=== PATIENT | male | born 1950 ===

== ENCOUNTER → 2022-06-22 | Outpatient (RCR) | payer MEDICARE | LOC: PT 10:42 | PROVIDERS: ATTEND Neurological Surgery | DX: M51.17 Intervertebral disc disorders with radiculopathy, lumbosacral region (principal) ==

== ENCOUNTER 2022-07-20 10:54 | Outpatient (RCR) | payer MEDICARE | END 2022-07-22 | LOC: PT 10:54 | PROVIDERS: ATTEND Neurological Surgery | DX: M51.17 Intervertebral disc disorders with radiculopathy, lumbosacral region (principal) ==